=== PATIENT | female | born 1975 | race African-American/Black ===

== ENCOUNTER 2022-12-27 12:20 | Observation (INO) | payer OTHER, MEDICAID ==
[2022-12-27] MEDS ORDERED: Ondansetron 4 MG/2 ML SDV IVPUSH ONE ×2 (13:11→18:06)
[2022-12-27] MEDS ORDERED: fentaNYL 50 MCG/ML SDV IVPUSH ONE ×3 (13:11→18:05)
[2022-12-27] MEDS ORDERED: Sodium Chloride 0.9% 1,000 ML IV ONE (13:11)
[2022-12-27 13:36] LABS: BASOPHILS PERCENT AUTO 0.5 % (0.0-1.5); EOSINOPHILS ABSOLUTE AUTO 0.2 K/uL (0.0-0.7); EOSINOPHILS PERCENT AUTO 3.7 % (0.0-7.0); HEMOGLOBIN 12.8 g/dL (12.0-16.0); LYMPHOCYTES ABSOLUTE AUTO 2.2 K/uL (0.6-2.4); LYMPHOCYTES PERCENT AUTO 54.8 % (16.0-40.0); MEAN CORPUSCULAR HEMOGLOBIN 26.9 pg (27.0-32.0); MEAN CORPUSCULAR HGB CONC 33.7 g/dL (31.0-37.0); MONOCYTES ABSOLUTE AUTO 0.3 K/uL (0.0-0.8); MONOCYTES PERCENT AUTO 8.4 % (0.0-15.0); NEUTROPHILS ABSOLUTE AUTO 1.3 K/uL (1.4-5.7); NEUTROPHILS PERCENT AUTO 32.6 % (48.0-80.0); NRBC ABSOLUTE 0 K/uL; PLATELET COUNT,PLT 284 K/uL (150-400); RED BLOOD CELL COUNT 4.75 M/uL (4.30-5.90); WHITE BLOOD CELL COUNT,WBC 4.03 K/uL (4.0-11.0)
[2022-12-27 13:37] LABS: A/G RATIO 0.8 (0.9-1.6); ALBUMIN 3.5 g/dL (3.4-5.0); BILIRUBIN TOTAL 0.4 mg/dL (0.2-1.0); CALCIUM 8.5 mg/dL (8.5-10.1); CARBON DIOXIDE,CO2 28.9 mmol/L (21.0-32.0); CREATININE 0.8 mg/dL (0.6-1.0); EST CRCL DRUG DOSING (CG) 79.91 mL/min; POTASSIUM,K 3.7 mmol/L (3.5-5.1); PROTEIN TOTAL,TP 7.9 g/dL (6.4-8.2)
[2022-12-27 14:22] LABS: APPEARANCE,URINE CLEAR; BILIRUBIN,URINE NEGATIVE (NEGATIVE); COLOR,URINE YELLOW; GLUCOSE,URINE NEGATIVE (NEGATIVE); KETONES,URINE NEGATIVE (NEGATIVE); LEUKOCYTE ESTERASE,URINE NEGATIVE (NEGATIVE); NITRITE,URINE NEGATIVE (NEGATIVE); OCCULT BLOOD,URINE TRACE-INTACT (NEGATIVE); PROTEIN,URINE NEGATIVE (NEGATIVE); UROBILINOGEN,URINE 0.2 EU/dL (<2.0)
[2022-12-27 14:29] LABS: BACTERIA,URINE RARE (NEGATIVE); EPITHELIAL CELLS,URINE FEW (NONE-FEW); MUCUS,URINE LIGHT (NONE-MOD); WBC,URINE 0-1 (0-5/HPF)
[2022-12-27] MEDS ORDERED: Ketorolac 30 MG/ML SDV IVPUSH ONE ×2 (15:03→15:42)
[2022-12-27] MEDS ORDERED: Ondansetron 4 MG/2 ML SDV IVPUSH PRN (20:23)
[2022-12-27] MEDS ORDERED: Naloxone 0.4 MG/ML SDV IVPUSH PRN (20:23)
[2022-12-27] MEDS: Sodium Chloride 0.9% 1,000 ML IV SCH (21:18)
[2022-12-27] MEDS: Pantoprazole 40 MG in Sodium Chloride 0.9% 10 ML IVPUSH SCH (21:23)
[2022-12-27] MEDS: Acetaminophen 1,000 MG in Premix Bag 1 BAG IV PRN (23:51)
[2022-12-28 05:48] LABS: BASOPHILS PERCENT AUTO 0.5 % (0.0-1.5); EOSINOPHILS ABSOLUTE AUTO 0.1 K/uL (0.0-0.7); EOSINOPHILS PERCENT AUTO 3.1 % (0.0-7.0); HEMATOCRIT 35.7 % (36.0-46.0); LYMPHOCYTES PERCENT AUTO 52.5 % (16.0-40.0); MEAN CORPUSCULAR HEMOGLOBIN 26.6 pg (27.0-32.0); MEAN CORPUSCULAR HGB CONC 33.6 g/dL (31.0-37.0); MEAN CORPUSCULAR VOLUME 79.2 fL (80.0-98.0); MONOCYTES ABSOLUTE AUTO 0.3 K/uL (0.0-0.8); MONOCYTES PERCENT AUTO 8.8 % (0.0-15.0); NEUTROPHILS ABSOLUTE AUTO 1.4 K/uL (1.4-5.7); NEUTROPHILS PERCENT AUTO 35.1 % (48.0-80.0); NRBC ABSOLUTE 0 K/uL; PLATELET COUNT,PLT 269 K/uL (150-400); RED BLOOD CELL COUNT 4.51 M/uL (4.30-5.90); WHITE BLOOD CELL COUNT,WBC 3.87 K/uL (4.0-11.0)
[2022-12-28] MEDS: Sodium Chloride 0.9% 1,000 ML IV SCH ×2 (06:07→22:14)
[2022-12-28 06:13] LABS: A/G RATIO 0.8 (0.9-1.6); ALBUMIN 3.1 g/dL (3.4-5.0); BILIRUBIN TOTAL 0.7 mg/dL (0.2-1.0); CARBON DIOXIDE,CO2 23.6 mmol/L (21.0-32.0); CREATININE 0.7 mg/dL (0.6-1.0); EST CRCL DRUG DOSING (CG) 91.32 mL/min; PROTEIN TOTAL,TP 7.2 g/dL (6.4-8.2)
[2022-12-28] MEDS: HYDROmorphone 2 MG/ML Syringe IVPUSH PRN ×2 (07:17→21:27)
[2022-12-28] MEDS ORDERED: Scopolamine 1.5 MG Transdermal Patch TOP ONE (08:14)
[2022-12-28] MEDS: Pantoprazole 40 MG in Sodium Chloride 0.9% 10 ML IVPUSH SCH ×2 (08:43→21:29)
[2022-12-28] MEDS ORDERED: HYDROmorphone 1 MG/ML Syringe IVPUSH PRN (17:35)
[2022-12-28] MEDS ORDERED: fentaNYL 50 MCG/ML SDV IVPUSH PRN (17:35)
[2022-12-28] MEDS ORDERED: droPERidol 5 MG/2 ML SDV IVPUSH PRN (17:35)
[2022-12-28] MEDS ORDERED: Albuterol 0.083% 2.5 MG/3 ML Neb Soln NEB PRN (17:35)
[2022-12-28] MEDS ORDERED: Morphine 2 MG/ML SYRINGE IVPUSH PRN (17:36)
[2022-12-28] MEDS ORDERED: Metoclopramide 10 MG/2 ML SDV IVPUSH PRN (17:36)
[2022-12-28] MEDS ORDERED: Naloxone 0.4 MG/ML SDV IVPUSH PRN (17:36)
[2022-12-28] MEDS ORDERED: Ondansetron 4 MG/2 ML SDV IVPUSH PRN (17:37)
[2022-12-28] MEDS: Acetaminophen 1,000 MG in Premix Bag 1 BAG IV PRN (19:34)
[2022-12-29] MEDS: Acetaminophen/HYDROcodone 325-5 MG Tab PO PRN ×2 (05:09→10:41)
[2022-12-29] MEDS: Sodium Chloride 0.9% 1,000 ML IV SCH (07:23)
[2022-12-29] MEDS: Acetaminophen 1,000 MG in Premix Bag 1 BAG IV PRN (09:35)
[2022-12-29] MEDS: Pantoprazole 40 MG in Sodium Chloride 0.9% 10 ML IVPUSH SCH (09:36)
== END 2022-12-29 12:40 | disposition home or self-care (01) ==
LOC: MW.ED 12:20 → MW.MS 20:09
PROVIDERS: ADMIT Surgery; ATTEND Surgery
DX: K80.20 Calculus of gallbladder without cholecystitis without obstruction (principal); K82.8 Other specified diseases of gallbladder; R16.0 Hepatomegaly, not elsewhere classified; N70.11 Chronic salpingitis; I10 Essential (primary) hypertension; J45.909 Unspecified asthma, uncomplicated; Z87.891 Personal history of nicotine dependence; Z88.0 Allergy status to penicillin; Z98.51 Tubal ligation status; Z91.040 Latex allergy status
CPT/HCPCS: 36415; 47562; 64488; 74176; 76705; 80053; 81001; 82150; 83690; 85025; 96361; 96365; 96366; 96375; 96376; 99285; A9270; C9113; G0378; J0131; J1170; J1885; J2405; J3010; J3490; J7030; 96374; 99283